=== PATIENT | female | born 1945 | race Caucasian/White ===

== ENCOUNTER → 2019-06-15 | Outpatient (CLI) | payer MEDICARE, OTHER | END | disposition home or self-care (01) | LOC: PLD 07:01 → LAB SHORT 07:01 | DX: L72.0 Epidermal cyst (principal) | CPT/HCPCS: 88304 ==

== ENCOUNTER → 2020-08-01 | Outpatient (CLI) | payer MEDICARE, OTHER | END | disposition home or self-care (01) | LOC: PLD 11:23 → LAB SHORT 11:23 | DX: D22.5 Melanocytic nevi of trunk (principal) | CPT/HCPCS: 88305 ==